=== PATIENT | male | born 1995 | race Caucasian/White ===

== ENCOUNTER 2018-03-07 02:17 | Emergency (ER) | payer OTHER ==
[~2018-03-07] VITALS: Ht 185.4 cm; Wt 111.1 kg
[2018-03-07 02:26] VITALS: Ht 185.4 cm; Wt 111.1 kg
[2018-03-07 02:48] VITALS: BP 148/94
== END 2018-03-07 02:48 | disposition other institution (70) ==
LOC: ED 02:17
DX: F17.210 Nicotine dependence, cigarettes, uncomplicated (principal); Z04.1 Encounter for examination and observation following transport accident